=== PATIENT | male | born 1990 | race Two or more races ===

== ENCOUNTER 2017-03-30 12:12 | Emergency (ER) | payer OTHER ==
[~2017-03-30] VITALS: Ht 165.1 cm; Wt 89.0 kg
[2017-03-30 12:15] VITALS: Ht 165.1 cm; Wt 89.0 kg
[2017-03-30] MEDS ORDERED: ACETAMINOPHEN 500 MG TAB PO STA (13:51)
--- NOTE | 2017-03-30 14:18 | RADRPT ---
PROCEDURE: CT Brain without contrast. CLINICAL INDICATION: Right sided headaches for 3 days TECHNIQUE: CT scan of the brain was performed on a multidetector high-resolution CT scan. Axial im aging was obtained of the brain without contrast administration. Coronal and sagittal reformatted i mages were obtained from the axial source images. Standard CT scan of the head without contrast prot ocols were performed. The total exam CTDI equals 44.58 mGy and the total exam DLP equals 630.2 mGy-cm. One or more of the following dose reduction techniques were used: - Automated exposure control. - Adjustment of the mA and/or kV according to patient size. Use of iterative reconstruction technique. COMPARISON: None. FINDINGS: The ventricular system and peripheral CSF spaces are unremarkable. Negative for intracr anial masses hemorrhages or midline shift. The mancini-white matter junction is unremarkable. The bon es and calvarium are intact. The paranasal sinuses and mastoids are unremarkable. IMPRESSION: No evidence of intracranial masses hemorrhages or midline shift. RPTAT:AAJJ Physician Madonna Date Time Electronically viewed and signed by Physician Madonna on 03/30/2017 14:18 /
[2017-03-30] MEDS ORDERED: ACET500C5 PO (14:40)
[2017-03-30] MEDS ORDERED: MECL-77 PO (14:40)
[2017-03-30] MEDS ORDERED: NAPH15DR OP (14:41)
--- NOTE | 2017-03-30 14:47 | ERD ---
ER Documentation Chief Complaint Date/Time DATE: 03/30/17 TIME: 14:45 Chief Complaint feels dizzy today HPI This 26-year-old male awoke with a right-sided headache and dizziness this morning. It was possibly a spinning type dizziness. Is unable to give a detailed characterization. The dizziness is improved he has a persistent right- sided headache. He also complains of eyes watering intermittently for the last few weeks. Patient denies any fevers, recent illnesses history of trauma, weakness or neurologic deficits. Denies any visual field changes or deficits. Patient denies any previous history of headaches ROS All systems reviewed and are negative except as per history of present illness. Medications Home Meds Active Scripts Naphazoline Hcl/Phenir Mal (Naphcon-A Eye Drops) 15 Ml Drops, 15 ML OP TID for 7 Days, BOTTLE Prov:JULIETA LORENZO MD 03/30/17 Acetaminophen* (Tylophen*) 500 Mg Capsule, 1 CAP PO Q6H Y for PAIN AND OR ELEVATED TEMP, #20 CAP Prov:JULIETA LORENZO MD 03/30/17 Discontinued Scripts Meclizine Hcl* (Meclizine Hcl*) 25 Mg Tablet, 25 MG PO Q8H Y for DIZZINESS, #15 TAB Prov:JULIETA LORENZO MD 03/30/17 Allergies Allergies: Coded Allergies: No Known Allergy (Unverified , 03/30/17) PMhx/Soc Medical and Surgical Hx: pt denies Medical Hx History of Surgery: Yes (tonsillectomy) Anesthesia Reaction: No Hx Neurological Disorder: No Hx Respiratory Disorders: No Hx Cardiac Disorders: No Hx Psychiatric Problems: No Hx Miscellaneous Medical Probl: No Hx Alcohol Use: Yes Hx Substance Use: No Hx Tobacco Use: Yes Smoking Status: Current some day smoker Physical Exam Vitals Vital Signs Date Time Temp Pulse Resp B/P Pulse Ox O2 Delivery O2 Flow Rate FiO2 03/30/17 12:15 98.1 88 18 140/85 99 Physical Exam Const: [] Alert, not ill-appearing. Head: Atraumatic Eyes: Normal Conjunctiva ENT: Normal External Ears, Nose and Mouth. Neck: Full range of motion..~ No meningismus. Resp: Clear to auscultation bilaterally Cardio: Regular rate and rhythm, no murmurs Abd: Soft, non tender, non distended. Normal bowel sounds Skin: No petechiae or rashes Back: No midline or flank tenderness Ext: No cyanosis, or edema Neur: Awake and alert. Cranial nerves II through XII grossly intact. Patient has normal gait without cerebellar signs Psych: Normal Mood and Affect Results 24 hrs Current Medications Medications (Trade) Dose Ordered Sig/Delilah Route PRN Reason Start Time Stop Time Status Last Admin Dose Admin Acetaminophen (Tylenol Tab) 500 mg ONCE STAT PO 03/30/17 13:51 03/30/17 13:52 DC 03/30/17 13:55 Procedures/MDM Given the uncertain cause of headache no previous history of headaches and acute onset CT brain was performed which was read as normal by the radiologist. Patient has improved dizziness and headache of uncertain etiology without evidence of bleeding, mass-effect, signs of meningitis, neurologic deficit. We treated with Tylenol further observation. Given Naphcon prescription for his eyes. Patient is advised to follow-up with his primary doctor within the ER for any worsening symptoms. The patient was stable with no new complaints during the ER course. Clinically, there is no current evidence to suggest meningitis, sepsis, acute abdomen, pneumonia, acute coronary syndrome, pulmonary embolism, or any other emergent condition appearing to require further evaluation or hospitalization. The patient should certainly return for any new or worsening symptoms per the aftercare instructions. They should otherwise follow-up with her primary care doctor for reevaluation this week. Departure Diagnosis: Primary Impression: Headache Headache type: unspecified Headache chronicity pattern: acute headache Intractability: not intractable Qualified Code: R51 - Acute nonintractable headache, unspecified headache type Additional Impression: Dizziness Condition: Stable Patient Instructions: Dizziness, Unk Cause, Headache, Unspecified Additional Instructions: CT normal today. Recheck for new or worsening symptoms or primary care doctor per JULIETA LORENZO MD March 30, 2017 14:47
== END 2017-03-30 14:54 | disposition home or self-care (01) ==
LOC: FTE 12:12
DX: R51 Headache (principal); F17.210 Nicotine dependence, cigarettes, uncomplicated
CPT/HCPCS: 70450; Z7502; Z7610